=== PATIENT | female | born 1985 | race Two or more races ===

== ENCOUNTER 2019-01-31 11:45 | Inpatient (IN) | payer OTHER ==
[2019-01-31] MEDS ORDERED: BETAMET ACET/BETAMET NA PH 30 MG/5 ML VIAL IM ONE (12:18)
[2019-01-31] MEDS ORDERED: DEXTROSE 5%-LACTATED RINGERS 1,000 ML IV SCH (12:30)
--- NOTE | 2019-01-31 12:45 | HP ---
Past Medical History - Primary Care Physician PCP:: Moe Montez - Admission Chief Complaint: 23.5 weeks, short cervix History of Present Illness: 33 yo f , EDC by sono 05/25/19 , referred form clinc with short cx and cervical dilation of 2 cm , no contraction, no bleeding , no ROM, no dysuria, , no fever or chills, patient admitted to be transfer to [facility] History Source: Medical Record (and [employer] Limitations to Obtaining History: Language Barrier - Past Medical History ...: 1 ...Para: 0 ...LMP: 08/08/18 ... 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, no sonogram abnormality, declined NIPT Infectious Disease: Yes: STD's (hpv positve txed for Gardenella) - Past Surgical History Past Surgical History: Yes: Appendectomy Hx Myomectomy: No Hx Transabdominal Cerclage: No - Smoking History Smoking history: Never smoked Have you smoked in the past 12 months: No - Alcohol/Substance Use Hx Alcohol Use: No Review of Systems - Review of Systems Constitutional: reports: No Symptoms Eyes: reports: No Symptoms HENT: reports: No Symptoms Neck: reports: No Symptoms Respiratory: reports: No Symptoms Gastrointestinal: reports: No Symptoms Genitourinary: reports: No Symptoms Breasts: reports: No Symptoms Reported Musculoskeletal: reports: No Symptoms Integumentary: reports: No Symptoms Neurological: reports: No Symptoms Endocrine: reports: No Symptoms Hematology/Lymphatic: reports: No Symptoms Psychiatric: reports: No Symptoms Physical Exam - Maternity Vital Signs: Vital Signs Temperature 98.4 F 01/31/19 12:24 Pulse Rate 98 H 01/31/19 12:24 Respiratory Rate 20 01/31/19 12:24 Blood Pressure 132/88 01/31/19 12:24 O2 Sat by Pulse Oximetry (%) Constitutional: Yes: Well Nourished, No Distress, Calm Eyes: Yes: WNL, Conjunctiva Clear, EOM Intact HENT: Yes: WNL, Atraumatic, Normocephalic Neck: Yes: WNL, Supple, Trachea Midline Cardiovascular: Yes: WNL, Regular Rate and Rhythm Breast(s): Yes: WNL - Abdominal Exam/OB Fundal Height: 24 Number of Fetuses: Single Contractions: No Intensity: Unaware Monitor Mode: External Heart Rate Location: [facility] Category: I Accelerations: Uniform Decelerations: None - Vaginal Exam/OB Vaginal Bleediing: No Speculum Exam: Yes Dilatation (cm): 2cm Amniotic Membrane Status: Bulging Station: -3 - Physical Exam Musculoskeletal: Yes: WNL Extremities: Yes: WNL Edema: No Deep Tendon Reflex Grade: Normal +2 Psychiatric: Yes: WNL Hemorrhage Risk Assessment - Risk Factors Medium Risk Factors: Yes: None High Risk Factors: Yes: None Risk Score: 1 Risk Level: Medium Risk Problem List - Problems (1) with 23 completed weeks gestation Code(s): Z3A.23 - 23 WEEKS GESTATION OF (2) Incompetence of cervix Code(s): N88.3 - INCOMPETENCE OF CERVIX UTERI Assessment/Plan transfer to [facility] , risks and benfit of trasferring to [facility] discussed with patient
[2019-01-31 13:05] VITALS: BMI 31.1
[2019-01-31 13:14] LABS: BASO % 0.1 % (0-2.0); EOS % 0.4 % (0-4.5); HEMATOCRIT 37.1 % (32.4-45.2); HEMOGLOBIN 13.1 GM/dL (10.7-15.3); LYMPH % 17.6 % (8-40); MCH 31.6 pg (25.7-33.7); MCHC 35.4 g/dl (32.0-36.0); MEAN CELL VOLUME 89.3 fl (80-96); MEAN PLT VOLUME 8.1 fl (7.5-11.1); MONO % 9.2 % (3.8-10.2); NEUT % 72.7 % (42.8-82.8); PLATELET COUNT 280 K/MM3 (134-434); RBC 4.15 M/mm3 (3.60-5.2); RDW 14.9 % (11.6-15.6); WHITE BLOOD COUNT 12.6 K/mm3 (4.0-10.0)
[2019-01-31] MEDS ORDERED: MAGNESIUM SULF 50% (8.12 MEQ/2 ML-1 GM VIAL) IVPB ONE (13:36)
[2019-01-31] MEDS ORDERED: PENICILLIN G POTASSIUM 5,000,000 (5Mm) UNIT VIAL IVPB ONE (13:37)
[2019-01-31 13:38] VITALS: BP 131/79; PULSE 95; TEMP 98.3
[2019-01-31 13:38] LABS: ACTIVATED PTT 27.7 SECONDS (25.2-36.5)
[2019-01-31 13:44] LABS: ANION GAP 10 MMOL/L (8-16); BLOOD UREA NITROGEN 7 mg/dL (7-18); CALCIUM 8.8 mg/dL (8.5-10.1); CHLORIDE 105 mmol/L (98-107); CO2 20 mmol/L (21-32); CREATININE 0.5 mg/dL (0.55-1.3); GLUCOSE,RANDOM 128 mg/dL (74-106); POTASSIUM 3.8 mmol/L (3.5-5.1); SODIUM 135 mmol/L (136-145)
[2019-01-31 13:51] LABS: INR 1.02 (0.83-1.09)
[2019-01-31] MEDS ORDERED: DEXTROSE 5% IVPB ONE ×2 (14:00)
[2019-01-31] MEDS ORDERED: WATER IVPB ONE ×2 (14:00)
[2019-01-31] MEDS ORDERED: MAGNESIUM SULFATE IVPB ONE ×2 (14:00)
== END 2019-01-31 14:00 | disposition short-term general hospital (02) | DRG 566 ==
LOC: JLDR 11:45
PROVIDERS: ADMIT Obstetrics & Gynecology; ATTEND Obstetrics & Gynecology
DX: O34.32 Maternal care for cervical incompetence, second trimester (principal); O26.872 Cervical shortening, second trimester; Z3A.23 23 weeks gestation of pregnancy
CPT/HCPCS: 36415; 80048; 85025; 85610; 85730; 86593; 86850; 86900; 86901; 87086; 96372

== ENCOUNTER 2023-12-03 09:30 | Emergency (ER) | payer OTHER ==
[2023-12-03 09:52] VITALS: TEMP 98.3; BMI 26.7
[2023-12-03] MEDS ORDERED: SODIUM CHLORIDE 1,000 ML IV ONE (10:00)
[2023-12-03 10:46] LABS: BASO % 0.7 % (0-2.0); EOS % 0.9 % (0-4.5); HEMATOCRIT 39.6 % (32.4-45.2); HEMOGLOBIN 13.2 GM/dL (10.7-15.3); LYMPH % 25.7 % (8-40); MCH 30.2 pg (25.7-33.7); MCHC 33.4 g/dl (32.0-36.0); MEAN CELL VOLUME 90.4 fl (80-96); MEAN PLT VOLUME 8.1 fl (7.5-11.1); MONO % 8.2 % (3.8-10.2); NEUT % 64.5 % (42.8-82.8); PLATELET COUNT 255 10^3/uL (134-434); RBC 4.38 M/mm3 (3.60-5.2); RDW 13.8 % (11.6-15.6); WHITE BLOOD COUNT 10.5 K/mm3 (4.0-10.0)
[2023-12-03 10:54] LABS: INR 1.03 (0.83-1.09); PROTHROMBIN TIME (PATIENT) 11.9 SEC (9.7-13.0)
[2023-12-03 10:57] LABS: ACTIVATED PTT 28.6 SECONDS (25.2-36.5)
[2023-12-03 11:05] LABS: POTASSIUM 4.2 mmol/L (3.5-5.1)
[2023-12-03 11:07] LABS: CALCIUM 8.8 mg/dL (8.5-10.1)
[2023-12-03 11:08] LABS: ALBUMIN 3.6 g/dl (3.4-5.0); BLOOD UREA NITROGEN 11.7 mg/dL (7-18)
[2023-12-03 11:10] LABS: CREATININE 0.7 mg/dL (0.55-1.3)
[2023-12-03 11:12] LABS: TOT PROT 7.3 g/dl (6.4-8.2)
[2023-12-03 11:23] LABS: EPI CELLS 6 /uL (0-25.1); HYALINE CASTS 0 /uL (0-3.1); PH,URINE 5.5 (5.0-8.0); URINE APPEARANCE CLEAR; URINE BACTERIA 216 /uL (0-1359); URINE BILIRUBIN NEGATIVE (NEGATIVE); URINE COLOR YELLOW; URINE GLUCOSE (UA) 3+ (NEGATIVE); URINE KETONE NEGATIVE (NEGATIVE); URINE LEUK ESTERASE NEGATIVE (NEGATIVE); URINE NITRITE NEGATIVE (NEGATIVE); URINE PROTEIN NEGATIVE (NEGATIVE); URINE RBC 20 /uL (0-23.9); URINE UROBILINOGEN 0.2 mg/dL (0.2-1.0); URINE WBC 5 /uL (0-25.8)
[2023-12-03 11:26] LABS: HCG,QUALITATIVE URINE Positive
[2023-12-03 12:04] LABS: YEAST NONE SEEN (NEGATIVE)
[2023-12-03 13:18] VITALS: BP 122/77; PULSE 74; RESP 20
== END 2023-12-03 14:57 | disposition home or self-care (01) ==
LOC: JER 09:30
PROC: 3E0337Z Introduction of Electrolytic and Water Balance Substance into Peripheral Vein, Percutaneous Approach (ICD-10-PCS; principal; 2023-12-03)
DX: O20.9 Hemorrhage in early pregnancy, unspecified (principal); O26.891 Other specified pregnancy related conditions, first trimester; R10.9 Unspecified abdominal pain; Z3A.01 Less than 8 weeks gestation of pregnancy
CPT/HCPCS: 36415; 76817-TC; 80053; 81003; 84702; 84703; 85025; 85610; 85730; 86850; 86900; 86901; 99284-25

== ENCOUNTER 2023-12-08 14:07 | Emergency (ER) | payer OTHER ==
[2023-12-08 14:15] VITALS: RESP 18; BMI 29.0
[2023-12-08] MEDS ORDERED: ACETAMINOPHEN 1000 MG/100 ML BAG IVPB ONE (15:05)
[2023-12-08] MEDS ORDERED: ACETAMINOPHEN INJECTION 100 ML IVPB ONE (15:10)
[2023-12-08 15:34] LABS: URINE COLOR RED
[2023-12-08 15:35] LABS: URINE APPEARANCE BLOODY; URINE BILIRUBIN SMALL (NEGATIVE); URINE GLUCOSE (UA) NEGATIVE (NEGATIVE); URINE PROTEIN 3+ (NEGATIVE); URINE UROBILINOGEN 0.2 mg/dL (0.2-1.0)
[2023-12-08 15:37] LABS: BASO % 0.4 % (0-2.0); EOS % 0.6 % (0-4.5); HEMATOCRIT 38.2 % (32.4-45.2); HEMOGLOBIN 12.7 GM/dL (10.7-15.3); LYMPH % 20.1 % (8-40); MCH 30.1 pg (25.7-33.7); MCHC 33.4 g/dl (32.0-36.0); MEAN CELL VOLUME 90.3 fl (80-96); MEAN PLT VOLUME 8.1 fl (7.5-11.1); MONO % 8.9 % (3.8-10.2); PLATELET COUNT 315 10^3/uL (134-434); RBC 4.23 M/mm3 (3.60-5.2); WHITE BLOOD COUNT 18.7 K/mm3 (4.0-10.0)
[2023-12-08 16:08] LABS: POTASSIUM 4.1 mmol/L (3.5-5.1)
[2023-12-08 16:10] LABS: ALBUMIN 3.9 g/dl (3.4-5.0); BLOOD UREA NITROGEN 13.2 mg/dL (7-18); CALCIUM 9.5 mg/dL (8.5-10.1)
[2023-12-08 16:13] LABS: CREATININE 0.7 mg/dL (0.55-1.3)
[2023-12-08 16:14] LABS: BILIRUBIN,TOTAL 0.7 mg/dL (0.2-1)
[2023-12-08 16:15] LABS: TOT PROT 7.8 g/dl (6.4-8.2)
[2023-12-08] MEDS ORDERED: KETOROLAC TROMETHAMINE 30 MG/1 ML VIAL IVPUSH ONE (16:16)
[2023-12-08] MEDS ORDERED: SODIUM CHLORIDE 1,000 ML IV STA (16:16)
[2023-12-08] MEDS ORDERED: KETOROLAC TROMETHAMINE 30 MG/1 ML VIAL ONE (16:26)
[2023-12-08 17:27] LABS: INR 1.07 (0.83-1.09); PROTHROMBIN TIME (PATIENT) 12.4 SEC (9.7-13.0)
[2023-12-08 17:30] LABS: ACTIVATED PTT 22.3 SECONDS (25.2-36.5)
[2023-12-08 18:23] VITALS: BP 123/62; PULSE 92; TEMP 98.8
== END 2023-12-08 18:36 | disposition home or self-care (01) ==
LOC: JER 14:07
PROC: 3E033NZ Introduction of Analgesics, Hypnotics, Sedatives into Peripheral Vein, Percutaneous Approach (ICD-10-PCS; principal; 2023-12-08)
PROC: 3E0333Z Introduction of Anti-inflammatory into Peripheral Vein, Percutaneous Approach (ICD-10-PCS; 2023-12-08)
PROC: 3E0337Z Introduction of Electrolytic and Water Balance Substance into Peripheral Vein, Percutaneous Approach (ICD-10-PCS; 2023-12-08)
DX: O03.9 Complete or unspecified spontaneous abortion without complication (principal); O26.891 Other specified pregnancy related conditions, first trimester; R10.30 Lower abdominal pain, unspecified
CPT/HCPCS: 36415; 76817-TC; 80053; 81003; 83605; 84702; 85025; 85610; 85730; 87086; 99284-25; J0131